=== PATIENT | female | born 1990 | race Caucasian/White ===

== ENCOUNTER 2017-05-23 09:27 | Day surgery (SDC) | payer MEDICARE, MEDICAID ==
[~2017-05-23 09:27] MED LIST: Buffered Lidocaine 0.9% SYRIN* 5 ML/SYR SYRINGE INTRADERM ONE; Dexamethasone IV* 4 MG/ML 1 ML (4 MG) IV SLOW PU ONE; Famotidine IV* 10 MG/ML 2 ML (20 mg) IV ONE
[2017-05-23] MEDS ORDERED: ceFAZolin 2 GM PREMIX (*) 2 GM/50 ML BAG IVPB ONE (09:41)
[2017-05-23] MEDS ORDERED: Famotidine IV* 10 MG/ML 2 ML (20 mg) ONE (09:42)
[2017-05-23] MEDS ORDERED: Dexamethasone IV* 4 MG/ML 1 ML (4 MG) ONE (09:42)
[2017-05-23] MEDS ORDERED: Bupivacaine 0.25% SDV* 30 ML ONE ×2 (10:36→11:05)
[2017-05-23] MEDS ORDERED: Propofol* 10 MG/ML 20 ML BTL IV PUSH ONE (11:07)
[2017-05-23] MEDS ORDERED: Lidocaine 2% PF * 5 ML VIAL ONE (11:07)
[2017-05-23] MEDS ORDERED: fentaNYL* 50 MCG/ML 2 ML VIAL (100 MCG VIAL) IV PRN (11:13)
[2017-05-23] MEDS ORDERED: Naloxone* 0.4 MG/ML 1 ML VIAL IV PRN (11:13)
[2017-05-23] MEDS ORDERED: HYDROcodone/ACETAMIN 5-325 MG* 1 TAB PO PRN (11:13)
[2017-05-23] MEDS ORDERED: oxyCODONE/Acetamin 5/325 MG* TAB PO PRN (11:13)
[2017-05-23] MEDS ORDERED: PROCHLORPERAZINE INJ 5 MG/ML 2 ML VIAL IV PRN (11:13)
[2017-05-23] MEDS ORDERED: DiMENhydriNATE IV* 50 MG/ML VIAL IV PUSH PRN (11:13)
[2017-05-23] MEDS ORDERED: Midazolam* 1 MG/ML 2 ML VIAL (2 MG) ONE (11:23)
[2017-05-23] MEDS ORDERED: fentaNYL* 50 MCG/ML 5 ML VIAL (250 MCG VIAL) ONE (11:23)
[2017-05-23] MEDS ORDERED: Ketorolac INJ* 30 MG/ML 1 ML VIAL ONE (11:54)
[2017-05-23] MEDS ORDERED: Ondansetron INJ* 2 MG/ML VIAL ONE (13:03)
[2017-05-23] MEDS ORDERED: fentaNYL* 50 MCG/ML 2 ML VIAL (100 MCG VIAL) ONE ×2 (13:38→14:08)
[2017-05-23 15:07] VITALS: BP 128/68
--- NOTE | 2017-05-24 15:25 | RAD ---
INDICATION: Right wrist/forearm. No other history is provided COMPARISONS: May 14, 2017 TECHNIQUE: Fluoroscopy was provided for a surgical procedure. Total fluoroscopy time is: 23 seconds FINDINGS: Spot images demonstrate internal fixation of the ulna IMPRESSION: FLUOROSCOPY WAS PROVIDED FOR A SURGICAL PROCEDURE CPT II Codes: 6045F
--- NOTE | 2017-05-28 19:16 | OP ---
DATE OF OPERATION: 05/23/17 - [facility] DATE OF : 86 SURGEON: Brent Garcia MD POULTRY SERVICE TECHNICIAN: BIANCA Combs. An criminal legal assistant was needed for the entirety of the procedure to aid in positioning of the arm and retraction. ANESTHESIOLOGIST: Edison Downey MD ANESTHESIA: General. PRE-OP DIAGNOSES: 1. Right wrist ulnar impaction syndrome. 2. 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 POST-OP DIAGNOSES: 1. Right wrist ulnar impaction syndrome. 2. 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 OPERATIVE PROCEDURE: 1. Right wrist diagnostic arthroscopy with central TFCC perforation debridement and partial synovectomy. 2. Right ulnar shortening osteotomy. 3. Right ulnar nerve decompression at the elbow with anterior subcutaneous transposition. INDICATIONS: Mary has had progressive ulnar-sided wrist pain that is activity related and mechanical. She has had workup at different orthopedic office. She has had nonoperative treatment there. MRI had showed a large central TFCC perforation and ulnar positive variance. I had talked to her about risks and benefits of doing an ulnar shortening osteotomy including risk of nonunion, she had wanted to proceed. Additionally, she is having significant ulnar nerve symptoms with extensive numbness and tingling in the ring and small fingers. She was felt to have some ulnar nerve instability preoperatively. ESTIMATED BLOOD LOSS: 5 mL. COMPLICATIONS: None. FINDINGS: Very large central TFCC perforation and she did indeed have ulnar nerve instability. DESCRIPTION OF PROCEDURE: Mary was seen in the preoperative holding area. The correct side, site, and procedure were identified. We came back to the operating room where the arm was prepped and draped in the usual fashion. A time-out was performed. The arm was exsanguinated with the Esmarch and the tourniquet inflated to 250 mmHg. I began by placing the arm in the Acumed traction tower and appropriate traction was applied to open up the wrist joint. I then developed a 3/4 portal with the 11 blade followed by the mosquito and then the camera was introduced into the 3/4 portal. The arthroscopy was begun, the radial-sided structures looked good, the lunate facet looked good, the proximal pole of the lunate looked good. As I came ulnar, a very large central TFCC perforation was visible with the distal end of the ulna clearly visible through the perforation. I then developed a 6R portal and introduced the probe and then the shaver into the portal. The TFCC tear was debrided with the use of the biters and the shaver. Once I had it back to nice, clean, healthy edges, I went through the instruments. I did develop mid carpal portals just to assess for any scapholunate or lunotriquetral instability. Both joints looked good without any instability. I then turned my attention to the forearm. A longitudinal incision was made over the subcutaneous border of the ulnar shaft. Dissection was carried down and the periosteum was released between the FCU and ECU. The subperiosteal dissection was performed on the dorsal aspect of the ulna. I then brought in my TriMed ulnar shortening osteotomy plate and clamped into place. I then placed the lag screw guide with a couple of dorsal pins and the compression clamp was applied and the pin was placed prior to making the osteotomy. I then selected my 5 mm cutting guide which I had templated preoperatively. This was clamped into place and the first osteotomy was made with a sagittal saw. I then brought in cutting block B and made a second osteotomy. The wedge of ulna was removed. I removed all the interposing soft tissue and then placed my compression clamp and compressed the osteotomy flushly. Prior to doing this, I had placed a screw in the oblong hole and then the 3 distal screws. I then drilled for the lag screw and tapped and then placed the lag screw, loosening the oblong screw prior to final tightening of the lag screw. There was perfect apposition and compression across the osteotomy. I tightened the oblong screw, I then placed 2 additional proximal screws. Everything was looking good, so we irrigated out the wound. The fascia was reapproximated with 3-0 Vicryl and the subcutaneous tissue was reapproximated with 3-0 Vicryl and the skin was closed with 4-0 Monocryl and Steri-Strips. At this point, the arthroscopy portals were closed with 4-0 Monocryl as well. At this point, I then abducted and externally rotated the arm. I made curvilinear incisions centered over the Parmar's ligament and continued distally and proximally in line with the ulnar nerve. Dissection was carried down, the medial antebrachial cutaneous nerve was protected. The nerve was decompressed by releasing the fascia proximally and then past the arcade of [place] and then Parmar's ligament and then distally releasing the FCU fascia , both the superficial and subfascial layers. Once I had the nerve completely released, it was clear where a 1 cm segment of the nerve had been begun over the medial epicondyle and then dived deep to Parmar's ligament and . After the decompression, the nerve frankly subluxated over the medial epicondyle. I therefore went ahead and released the medial intermuscular septum and excised it. I excised the leading edge of the FCU fascia. I raised step cut type fascial flaps off the flexor pronator fascia and excised the intermuscular septa and the flexor pronator mass. The nerve was then transposed. I had to do a little intraneural dissection to again adequate link on the motor branch of the FCU to the ulnar head of the FCU. Once I had the nerve nicely transposed, I went ahead and opposed my 2 fascial flaps and sutured them into end with some 4-0 Ethibond suture. This held the nerve in the transpose position. At this point, I flexed and extended the elbow. There was absolutely no kinking of the nerve. There was no compression whatsoever. Hemostasis was then obtained with a Bovie cautery. The subcutaneous tissue was reapproximated with 3-0 Vicryl. Skin was closed with 4-0 Monocryl and Steri- Strips. 0.25% Marcaine was infiltrated into all of the operative wounds. The wounds were then dressed with Xeroform, 4x4's and ABD, at the elbow, sterile Webril and a sugar tong splint was applied. The tourniquet was then deflated and the hand picked up immediately. She was taken to the recovery room in stable condition. [id number]/[facility] #: [id number] [facility] CENTERGisel
== END 2017-05-23 14:53 | disposition home or self-care (01) ==
LOC: OREAST 09:27
PROVIDERS: ATTEND Orthopaedic Surgery Hand Surgery
DX: M24.831 Other specific joint derangements of right wrist, not elsewhere classified (principal); G56.21 Lesion of ulnar nerve, right upper limb; F32.9 Major depressive disorder, single episode, unspecified
CPT/HCPCS: 76000; 81025; 88304; 88311; C1713; C1776; J0690; J1100; J1885; J2250; J2405; J2704; J3010